=== PATIENT | female | born 1955 | race Hispanic/Latino ===

== ENCOUNTER 2025-03-11 06:20 | Day surgery (SDC) | payer OTHER, MEDICARE ==
[2025-03-11] VITALS (9 sets, daily range): BP systolic 127–148; BP diastolic 61–75; PULSE 60–74; RESP 13–18; TEMP 97–98.2
[~2025-03-11] VITALS: Ht 144.8 cm; Wt 37.6 kg
[2025-03-11] MEDS ORDERED: LEVO50CA5 PO (07:23)
[2025-03-11] MEDS ORDERED: OMEP40CA21 PO (07:23)
[2025-03-11] MEDS ORDERED: BOTULINUM TOXIN TYPE A 100 UNITS/VIAL INJ ONE (07:30)
[2025-03-11] MEDS: 0.9%NACL 1000ML 1,000 ML IV ONE (07:56)
== END 2025-03-11 09:54 | disposition home or self-care (01) ==
LOC: DAH 06:20
PROVIDERS: ATTEND Internal Medicine Gastroenterology
DX: R13.10 Dysphagia, unspecified (principal); K29.50 Unspecified chronic gastritis without bleeding; K22.89 Other specified disease of esophagus; T18.128A Food in esophagus causing other injury, initial encounter; K22.0 Achalasia of cardia; E11.9 Type 2 diabetes mellitus without complications; R93.3 Abnormal findings on diagnostic imaging of other parts of digestive tract; R63.4 Abnormal weight loss; R94.5 Abnormal results of liver function studies; R12 Heartburn; R97.0 Elevated carcinoembryonic antigen [CEA]; Z79.899 Other long term (current) drug therapy; Z98.890 Other specified postprocedural states; X58.XXXA Exposure to other specified factors, initial encounter; Y93.89 Activity, other specified; Y92.89 Other specified places as the place of occurrence of the external cause; Y99.8 Other external cause status
CPT/HCPCS: 43236; 43239; 43248; J7030 ×2; J2704; J0585; A4620; A4215; A4223; A7002; A4222; A4221; A4663; A4606; J3490